=== PATIENT | male | born 1975 | race American Indian/Alaskan Native ===

== ENCOUNTER 2017-12-08 21:21 | Emergency (ER) | payer SELFPAY ==
[2017-12-08] MEDS ORDERED: ASPIRIN PO ONE (22:25)
--- NOTE | 2017-12-08 23:50 | XRay Report ---
FINAL REPORT PROCEDURE: XR CHEST ROUTINE 2V TECHNIQUE: PA and lateral chest radiographs were obtained. CPT 36615 HISTORY: brodie COMPARISON: No prior studies are available for comparison. FINDINGS: Heart: Normal. Mediastinum/Vessels: Normal. Lungs/Pleural space: Normal. Bony thorax: No acute osseous abnormality. Other: IMPRESSION: Normal examination.
[2017-12-09 00:10] LABS: Bilirubin,Urine NEG (Negative); Blood,Urine NEG (Negative); Color,Urine Yellow (Yellow); Protein,Urine <15 mg/dL mg/dL (Negative); Urobilinogen,Urine < 2.0 mg/dL (<2.0)
[2017-12-09 00:31] LABS: Basophils # (Auto) 0.1 K/mm3 (0.0-0.1); Eosinophils # (Auto) 0.1 K/mm3 (0.0-0.4); Eosinophils % (Auto) 1.6 % (0.0-4.3); Hematocrit 44.3 % (35.5-45.6); Hemoglobin 14.9 gm/dl (11.8-15.2); Lymphocytes # (Auto) 1.9 K/mm3 (1.2-5.4); Lymphocytes % (Auto) 23.8 % (13.4-35.0); Mean Corpuscular HGB Conc 34 % (32-34); Mean Corpuscular Hemoglobin 35 pg (28-32); Mean Corpuscular Volume 105 fl (84-94); Monocytes # (Auto) 0.8 K/mm3 (0.0-0.8); Monocytes % (Auto) 9.9 % (0.0-7.3); Platelet Count 328 K/mm3 (140-440); Red Blood Count 4.22 M/mm3 (3.65-5.03); Red Cell Distribution Width 13.9 % (13.2-15.2)
[2017-12-09 00:53] LABS: BUN/Creatinine Ratio 10; Blood Urea Nitrogen 9 mg/dL (9-20); Calcium 9.2 mg/dL (8.4-10.2); Hemolysis Index 1
[2017-12-09 01:35] VITALS: BP 128/82
--- NOTE | 2017-12-09 01:40 | Emergency Department Report ---
ED Chest Pain HPI - General Chief Complaint: Chest Pain Stated Complaint: CHEST PAIN Time Seen by Provider: 12/09/17 01:28 Source: patient Mode of arrival: Ambulatory Limitations: No Limitations - History of Present Illness Initial Comments: Patient is 42 years old male with no significant past medical history presented to the ER with left-sided chest pain, sharp, does not radiate, increased wheeze movement and taking a deep breath. Patient stated that he do a lot of lifting at his job. He denied any cough, fever, nausea or vomiting or shortness of breath. MD Complaint: chest pain -: Last night Onset: during rest Pain Location: left chest Pain Radiation: none Severity: moderate Severity scale (0 -10): 8 Quality: sharp Consistency: intermittent Improves With: remaining still Worsens With: movement - Related Data Previous Rx's Medication Instructions Recorded Last Taken Type Cyclobenzaprine [Flexeril] 5 mg PO TID PRN #30 tablet 12/09/17 Unknown Rx Naproxen [Naprosyn] 500 mg PO BID #14 tablet 12/09/17 Unknown Rx Allergies Allergy/AdvReac Type Severity Reaction Status Date / Time No Known Allergies Allergy Verified 12/09/17 01:29 Heart Score - HEART Score History: Slightly suspicious EKG: Non-specific Age: < 45 Risk factors: No known risk factors Troponin: < normal limit HEART Score: 1 - Critical Actions Critical Actions: 0-3 pts:0.9-1.7%risk of adverse cardiac event.Candidate for discharge ED Review of Systems ROS: Stated complaint: CHEST PAIN Other details as noted in HPI Comment: All other systems reviewed and negative Constitutional: denies: chills, fever Respiratory: denies: cough, orthopnea, shortness of breath, SOB with exertion Cardiovascular: chest pain. denies: palpitations, dyspnea on exertion, orthopnea Gastrointestinal: denies: abdominal pain, nausea, vomiting, diarrhea, constipation, hematemesis, hematochezia Musculoskeletal: denies: back pain Neurological: denies: headache, weakness, numbness, paresthesias ED Past Medical Hx - Past Medical History Previous Medical History?: No - Surgical History Past Surgical History?: No - Social History Smoking Status: Current Every Day Smoker Substance Use Type: Alcohol, Marijuana - Medications Home Medications: Home Medications Medication Instructions Recorded Confirmed Last Taken Type Cyclobenzaprine [Flexeril] 5 mg PO TID PRN #30 tablet 12/09/17 Unknown Rx Naproxen [Naprosyn] 500 mg PO BID #14 tablet 12/09/17 Unknown Rx ED Physical Exam - General Limitations: No Limitations General appearance: alert, in no apparent distress - Head Head exam: Present: atraumatic, normocephalic - Eye Eye exam: Present: normal appearance, PERRL - ENT ENT exam: Present: normal exam, normal orophraynx, mucous membranes moist - Neck Neck exam: Present: normal inspection, full ROM. Absent: tenderness, meningismus - Respiratory Respiratory exam: Present: normal lung sounds bilaterally, chest wall tenderness. Absent: respiratory distress, wheezes, rales, rhonchi, accessory muscle use, decreased breath sounds, prolonged expiratory - Cardiovascular Cardiovascular Exam: Present: regular rate, normal rhythm, normal heart sounds - GI/Abdominal GI/Abdominal exam: Present: soft, normal bowel sounds. Absent: distended, tenderness, guarding, rebound, rigid, mass, bruit, pulsatile mass - Extremities Exam Extremities exam: Present: normal inspection, full ROM, normal capillary refill - Back Exam Back exam: Present: normal inspection. Absent: full ROM, tenderness, CVA tenderness (R), CVA tenderness (L), muscle spasm, paraspinal tenderness, vertebral tenderness - Neurological Exam Neurological exam: Present: alert, oriented X3, CN II-XII intact, normal gait - Skin Skin exam: Present: warm, intact, normal color ED Course Vital Signs 12/08/17 12/09/17 12/09/17 22:22 01:34 01:35 Temperature 98.3 F 98.7 F Pulse Rate 79 71 Respiratory 18 18 18 Rate Blood Pressure 123/89 Blood Pressure 128/82 [Left] O2 Sat by Pulse 97 100 100 Oximetry ED Medical Decision Making - Lab Data Result diagrams: 12/08/17 23:38 12/08/17 23:38 - EKG Data -: EKG Interpreted by [place] EKG shows normal: sinus rhythm Rate: normal - EKG Data Interpretation: no acute changes - Radiology Data Radiology results: report reviewed Chest x-ray unremarkable. Critical care attestation.: If time is entered above; I have spent that time in minutes in the direct care of this critically ill patient, excluding procedure time. ED Disposition Clinical Impression: Chest pain, Costochondritis, acute Disposition: -01 TO HOME OR SELFCARE Is pt being admited?: No Condition: Stable Instructions: Chest Pain (ED), Costochondritis (ED) Prescriptions: Cyclobenzaprine [Flexeril] 5 mg PO TID PRN #30 tablet PRN Reason: Muscle Spasm Naproxen [Naprosyn] 500 mg PO BID #14 tablet Referrals: PRIMARY CARE, [Primary Care Provider] - 3-5 Days Forms: Work/School Release Form(ED)
== END 2017-12-09 03:30 | disposition home or self-care (01) ==
LOC: ED 21:21
DX: M94.0 Chondrocostal junction syndrome [Tietze] (principal); F17.200 Nicotine dependence, unspecified, uncomplicated; F12.10 Cannabis abuse, uncomplicated
CPT/HCPCS: 36415; 71046; 80048; 81001; 84484; 85025; 93005; 93010; 99284

== ENCOUNTER 2019-08-23 13:41 | Emergency (ER) | payer SELFPAY ==
[2019-08-23 14:14] VITALS: BP 128/84
--- NOTE | 2019-08-23 14:26 | Emergency Department Report ---
ED Back Pain/Injury HPI - General Chief Complaint: Back Pain/Injury Stated Complaint: BACK PAIN Time Seen by Provider: 08/23/19 14:21 Source: patient Limitations: No Limitations - History of Present Illness Initial Comments: This is a 44-year-old male nontoxic, well nourished in appearance, no acute signs of distress presents to the ED with c/o of acute on chronic lower back pa in. Patient stated that the past 2 days she was moving and developed this pain. Patient denies any trauma. Denies any bladder or bowel instability. Patient denies any urinary symptoms. Denies any fever, chills, nausea, vomiting, headache, stiff neck, chest pain or shortness of breath. Patient denies any numbness or tingling. Denies any allergies. MD Complaint: back pain -: days(s) Similar Symptoms Previously: Yes Place: work Radiation: none Severity: mild Severity scale (0 -10): 8 Quality: aching Consistency: intermittent Improves With: immobilization, sitting upright Worsens With: movement, walking Context: while lifting, turning/twisting Associated Symptoms: denies other symptoms. denies: confusion, weakness, chest pain, numbness, difficulty walking, cough, difficulty urinating, diaphoresis, incontinence, fever/chills, constipation, headaches, abdominal pain, loss of appetite, malaise, nausea/vomiting, rash, seizure, shortness of breath, syncope - Related Data Previous Rx's Medication Instructions Recorded Last Taken Type Cyclobenzaprine [Flexeril] 5 mg PO TID PRN #30 tablet 12/09/17 Unknown Rx Naproxen [Naprosyn] 500 mg PO BID #14 tablet 12/09/17 Unknown Rx Cyclobenzaprine [Flexeril] 10 mg PO QHS PRN #10 tablet 08/23/19 Unknown Rx Naproxen 500 mg PO Q8H PRN #20 tablet 08/23/19 Unknown Rx Allergies Allergy/AdvReac Type Severity Reaction Status Date / Time No Known Allergies Allergy Verified 12/09/17 01:29 ED Review of Systems ROS: Stated complaint: BACK PAIN Other details as noted in HPI Constitutional: denies: chills, fever Eyes: denies: eye pain, eye discharge, vision change ENT: denies: ear pain, throat pain Respiratory: denies: cough, shortness of breath, wheezing Cardiovascular: denies: chest pain, palpitations Endocrine: no symptoms reported Gastrointestinal: denies: abdominal pain, nausea, diarrhea Genitourinary: denies: urgency, dysuria Musculoskeletal: back pain. denies: joint swelling, arthralgia Skin: denies: rash, lesions Neurological: denies: headache, weakness, paresthesias Psychiatric: denies: anxiety, depression Hematological/Lymphatic: denies: easy bleeding, easy bruising ED Past Medical Hx - Past Medical History Previous Medical History?: No - Surgical History Past Surgical History?: No - Social History Smoking Status: Current Every Day Smoker Substance Use Type: Alcohol, Marijuana - Medications Home Medications: Home Medications Medication Instructions Recorded Confirmed Last Taken Type Cyclobenzaprine [Flexeril] 5 mg PO TID PRN #30 tablet 12/09/17 Unknown Rx Naproxen [Naprosyn] 500 mg PO BID #14 tablet 12/09/17 Unknown Rx Cyclobenzaprine [Flexeril] 10 mg PO QHS PRN #10 tablet 08/23/19 Unknown Rx Naproxen 500 mg PO Q8H PRN #20 tablet 08/23/19 Unknown Rx ED Physical Exam - General Limitations: No Limitations General appearance: alert, in no apparent distress - Head Head exam: Present: atraumatic, normocephalic - Neck Neck exam: Present: normal inspection, full ROM. Absent: tenderness, meningismus, lymphadenopathy - Extremities Exam Extremities exam: Present: normal inspection, full ROM, normal capillary refill. Absent: tenderness - Back Exam Back exam: Present: normal inspection, full ROM, paraspinal tenderness (right lower back pain). Absent: tenderness, CVA tenderness (R), CVA tenderness (L), muscle spasm, vertebral tenderness, rash noted - Expanded Back Exam Expanded Back exam: Absent: saddle anesthesia Back exam: Negative Straight Leg Raising: Left, Right - Neurological Exam Neurological exam: Present: alert, oriented X3, normal gait - Psychiatric Psychiatric exam: Present: normal affect, normal mood - Skin Skin exam: Present: warm, dry, intact, normal color. Absent: rash ED Course Vital Signs 08/23/19 14:13 Temperature 97.7 F Pulse Rate 97 H Respiratory 18 Rate Blood Pressure 128/84 O2 Sat by Pulse 97 Oximetry - Reevaluation(s) Reevaluation #1: 08/23/19 14:24 Patient is speaking in full sentences with no signs of distress noted. ED Medical Decision Making - Medical Decision Making Patient was instructed to Follow-up with a primary care doctor in 3-5 days or if symptoms worsen and continue return to emergency room as soon as possible. At time of discharge, the patient does not seem toxic or ill in appearance. No acute signs of distress noted. Patient agrees to discharge treatment plan of care. No further questions noted by the patient. Critical care attestation.: If time is entered above; I have spent that time in minutes in the direct care of this critically ill patient, excluding procedure time. ED Disposition Clinical Impression: Chronic lower back pain Qualifiers: Back pain laterality: right Sciatica presence: without sciatica Qualified Code(s): M54.5 - Low back pain; G89.29 - Other chronic pain Low back strain Qualifiers: Encounter type: initial encounter Qualified Code(s): S39.012A - Strain of muscle, fascia and tendon of lower back, initial encounter Disposition: TO HOME OR SELFCARE Is pt being admited?: No Does the pt Need Aspirin: No Condition: Stable Instructions: Muscle Strain (ED), Low Back Strain (ED), Cyclobenzaprine (By mouth) Additional Instructions: Follow-up with a primary care doctor in 3-5 days or if symptoms worsen and c ontinue return to emergency room as soon as possible. Prescriptions: Cyclobenzaprine [Flexeril] 10 mg PO QHS PRN #10 tablet PRN Reason: Muscle Spasm Naproxen 500 mg PO Q8H PRN #20 tablet PRN Reason: Pain, Moderate (4-6) Referrals: PRIMARY MD MARYCRUZ [Referring] - 3-5 Days JLUIS SWANSON MD [Staff Physician] - 3-5 Days [facility] [Outside] - 3-5 Days [facility] [Outside] - 3-5 Days Forms: Work/School Release Form(ED)
== END 2019-08-23 14:32 | disposition home or self-care (01) ==
LOC: ED 13:41
DX: S39.012A Strain of muscle, fascia and tendon of lower back, initial encounter (principal); F17.200 Nicotine dependence, unspecified, uncomplicated; F12.10 Cannabis abuse, uncomplicated; X58.XXXA Exposure to other specified factors, initial encounter; Y93.89 Activity, other specified; Y92.89 Other specified places as the place of occurrence of the external cause; Y99.8 Other external cause status
CPT/HCPCS: 99282

== ENCOUNTER 2019-09-03 16:58 | Emergency (ER) | payer SELFPAY ==
[2019-09-03 17:08] VITALS: BP 108/77
--- NOTE | 2019-09-03 18:40 | Emergency Department Report ---
Chief Complaint: Back Pain/Injury Stated Complaint: BACK PAIN Time Seen by Provider: 09/03/19 18:38 - HPI History of Present Illness: pt presents for chronic right lower back pain states it radiates to the right lower back states he scheduled an "MRI for September 10" "states he has a pulled muscle" no PCP or orthopedic doctor - Exam Vital Signs: Vital Signs 09/03/19 17:07 Temperature 98.3 F Pulse Rate 144 H Respiratory 18 Rate Blood Pressure 108/77 [Left] O2 Sat by Pulse 100 Oximetry MSE screening note: Focused history and physical exam performed. Due to findings the following was ordered: ED Disposition for MSE Condition: Stable
--- NOTE | 2019-09-03 18:43 | Event Note ---
ED Screening Note ED Screening Note: pt presents for chronic right lower back pain states it radiates to the right lower back states he has an appointment with a primary care doctor on September 10 "states he has a pulled muscle" no PCP or orthopedic doctor HR Is elevated in triage This initial assessment/diagnostic orders/clinical plan/treatment(s) is/are subject to change based on patients health status, clinical progression and re- assessment by fellow clinical providers in the ED. Further treatment and workup at subsequent clinical providers discretion. Patient/guardian urged not to elope from the ED as their condition may be serious if not clinically assessed and managed.
== END 2019-09-03 19:30 | disposition left against medical advice (07) ==
LOC: ED 16:58
DX: M54.89 Other dorsalgia (principal); Z53.21 Procedure and treatment not carried out due to patient leaving prior to being seen by health care provider

== ENCOUNTER 2019-09-12 07:47 | Emergency (ER) | payer SELFPAY ==
[2019-09-12] MEDS ORDERED: IPRATROPIUM 0.02% NEBU 2.5 ML IH ONE (08:20)
[2019-09-12] MEDS ORDERED: predniSONE 20 MG TAB PO ONE (08:20)
[2019-09-12] MEDS ORDERED: LEVALBUTEROL 0.63 MG/3 ML NEBU IH ONE (08:20)
--- NOTE | 2019-09-12 08:20 | Emergency Department Report ---
Minor Respiratory - HPI Chief Complaint: Upper Respiratory Infection Stated Complaint: COLD/BACK PAIN Time Seen by Provider: 09/12/19 08:16 Duration: 2 Days Pain Location: Other (date and body ache /10 and achy. No medication taken. Nothing makes it better and nothing makes it worse.) Severity: mild Minor Respiratory: Yes Rhinorrhea (nasal congestion), Yes Able to Tolerate Fluids (that not solid), Yes Cough (congested cough and wheeze since), Yes Shortness of Breath (shortness of breath or cough and), Yes Fever, No Sore Throat, No Ear Pain, No Sick Contacts, No Hemoptysis, No Chest Pain Other History: This is a 44-year-old male he reports that he has been having fever chills, nasal congestion and headache, decreased appetite since Tuesday. He has not taken anything [id number]. Pain is for the 10 to head and generalized body ache. Headache is located frontally on and off, feels achy, denies any nausea, vomiting, dizziness and blurred vision or any head injury. Denies any chest pain. Reports that he is feeling really bad. ED Review of Systems ROS: Stated complaint: COLD/BACK PAIN Other details as noted in HPI Constitutional: chills, fever, weakness Eyes: denies: eye discharge Respiratory: cough, shortness of breath (with coughing), wheezing Cardiovascular: denies: chest pain, palpitations, edema, syncope Gastrointestinal: denies: abdominal pain, nausea, vomiting Genitourinary: denies: dysuria, hematuria Musculoskeletal: myalgia. denies: back pain, joint swelling, arthralgia Skin: denies: rash Neurological: headache. denies: numbness, paresthesias, abnormal gait, vertigo ED Past Medical Hx - Past Medical History Previous Medical History?: Yes Additional medical history: BACK CHRONIC - Surgical History Past Surgical History?: No - Family History Family history: hypertension - Social History Smoking Status: Current Every Day Smoker Substance Use Type: Alcohol - Medications Home Medications: Home Medications Medication Instructions Recorded Confirmed Last Taken Type Cyclobenzaprine [Flexeril] 5 mg PO TID PRN #30 tablet 12/09/17 Unknown Rx Naproxen [Naprosyn] 500 mg PO BID #14 tablet 12/09/17 Unknown Rx Cyclobenzaprine [Flexeril] 10 mg PO QHS PRN #10 tablet 08/23/19 Unknown Rx Naproxen 500 mg PO Q8H PRN #20 tablet 08/23/19 Unknown Rx ALBUTEROL Inhaler (OR & NICU) 2 puff IH Q6H PRN #1 inhalation 09/12/19 Unknown Rx [ProAir HFA Inhaler] Azithromycin [Zithromax Z-RAJINDER] 250 mg PO DAILY 5 Days #1 pkg 09/12/19 Unknown Rx Cetirizine HCl [ZyrTEC] 10 mg PO QAM 14 Days #14 capsule 09/12/19 Unknown Rx Ibuprofen [Motrin] 800 mg PO Q8HR PRN #12 tablet 09/12/19 Unknown Rx Minor Respiratory Exam - Exam General: Vital signs noted. No distress. Alert and acting appropriately. This is a 44-year-old male patient well-nourished well-developed nontoxic in appearance. HEENT: Yes Moist Mucous Membranes (uvula midline and oral airways patent), Yes Rhinorrhea (pale and boggy mucosa), No Pharyngeal Erythema, No Pharyngeal Exudates, No Conjuctival Injection, No Frontal Tenderness, No Maxillary Tenderness Ear: Neither TM Bulge (yesenia middle ear effusion), Neither TM Erythema, Neither EAC Pain, Neither EAC Discharge Neck: Yes Supple (Full ROM), No Adenopathy Lungs: Yes Wheezes (upper lung vaughn), Yes Ronchi (cleared with coughing), Yes Cough (congested), No Stridor, No Labored Respirations, No Retractions, No Use of Accessory Muscles, No Other Abnormal Lung Sounds Heart: Yes Regular (tachycardia), No Murmur Abdomen: Yes Normal Bowel Sounds (all quadrants), No Tenderness (all quadrants), No Peritoneal Signs Skin: No Rash, No Edema Neurologic: Alert and oriented, no deficits. Musculoskeletal: Unremarkable. No clubbing, Cyanosis or edema. +2 pulses in all extremities ED Course Vital Signs 09/12/19 07:55 Temperature 99.2 F Pulse Rate 105 H Respiratory 16 Rate Blood Pressure 126/77 [Left] O2 Sat by Pulse 95 Oximetry Vital Signs 09/12/19 09/12/19 07:55 10:47 Temperature 99.2 F 99.0 F Pulse Rate 105 H 81 Respiratory 16 18 Rate Blood Pressure 126/77 121/80 [Left] O2 Sat by Pulse 95 97 Oximetry - Reevaluation(s) Reevaluation #1: 09/12/19 09:24 Patient received Xopenex 1.26 mg and Ativan 1 mg nebulizer treatment. Deltasone 60 mg by mouth x-ray chest 2 view shows pneumonia. Patient for lab work. He is stable and in no acute distress lung sounds better. Patient to receive IV Rocephin and will be discharged home on IV medication. Toradol for Reevaluation #2: 09/12/19 10:58 On reevaluation of lung lung sounds is better. Oxygenation is better. The signs is stable and patient is afebrile. Patient has pneumonia and given Rocephin 1 g IV without any adverse reaction. He said he is feeling a lot better. No pain at present ED Medical Decision Making - Lab Data Result diagrams: 09/12/19 09:46 Labs 09/12/19 09:46 Sodium 135 L Potassium 3.9 Chloride 98.7 Carbon Dioxide 17 L Anion Gap 23 BUN 13 Creatinine 0.9 Estimated GFR > 60 BUN/Creatinine Ratio 14 Glucose 104 H Calcium 9.3 - Radiology Data Radiology results: report reviewed View chest x-ray dictated by radiologist and report reviewed by myself. Please see details below Findings [facility] [address] [place] [address] XRay Report Signed Patient: JASE TAFOYA MR#: [id number] 1 : 1975 Acct:[id number] Age/Sex: 44 / M ADM Date: 09/12/19 Loc: ED Attending Dr: Ordering Physician: DAISY BECERRIL Date of Service: 09/12/19 Procedure(s): XR chest routine 2V Accession Number(s): [id number] cc: DAISY BECERRIL Fluoro Time In Minutes: CHEST 2 VIEWS INDICATION: cough, fever. COMPARISON: 12/08/2017 FINDINGS: Support devices: None. Heart: Within normal limits. Lungs/pleura: Mild underlying emphysematous changes are suspected. Subtle early infiltrate is suspected in the left upper lobe. The left lower lobe and right lung are adequately aerated. No pleural effusion or pneumothorax. Additional findings: None. IMPRESSION: Early left upper lobe pneumonia is suspected. Mild emphysematous changes. Signer Name: Josue Collins Jr, MD Signed: 09/12/2019 8:42 AM Workstation Name: [id number] Transcribed By: TTR Dictated By: JOSUE COLLINS JR, MD Electronically Authenticated By: JOSUE COLLINS JR, MD Signed Date/Time: 09/12/19841 DD/ 0 TD/TT: - Medical Decision Making IMPRESSION: Early left upper lobe pneumonia is suspected. Mild emphysematous changes. - Differential Diagnosis PNA, bronchitis, sinusitis, URI with cough and congestion Critical care attestation.: If time is entered above; I have spent that time in minutes in the direct care of this critically ill patient, excluding procedure time. ED Disposition Clinical Impression: Cough in adult, Fever and chills Left upper lobe pneumonia Qualifiers: Pneumonia type: due to unspecified organism Qualified Code(s): J18.9 - Pneumonia, unspecified organism Community acquired pneumonia Qualifiers: Laterality: left Lung location: upper lobe of lung Qualified Code(s): J18.9 - Pneumonia, unspecified organism Disposition: - TO HOME OR SELFCARE Is pt being admited?: No Does the pt Need Aspirin: No Condition: Stable Instructions: Community-acquired Pneumonia (ED), Bacterial Pneumonia (ED), Acute Cough (ED) Additional Instructions: Please follow-up with primary care physician and if he do not have a primary care physician follow-up at this outside [facility] for follow-up pneumonia within 2 days. IF condition worsens, return to the emergency room. Take discharge instructions on pneumonia Take medication as prescribed Rest and increase her fluid intake Pls ensure sure that you take all your antibiotic as prescribed. Prescriptions: Ibuprofen [Motrin] 800 mg PO Q8HR PRN #12 tablet PRN Reason: pain ALBUTEROL Inhaler (OR & NICU) [ProAir HFA Inhaler] 2 puff IH Q6H PRN #1 inhalation PRN Reason: Shortness Of Breath Azithromycin [Zithromax Z-RAJINDER] 250 mg PO DAILY 5 Days #1 pkg Cetirizine HCl [ZyrTEC] 10 mg PO QAM 14 Days #14 capsule Referrals: TERRY MADDOX MD [Primary Care Provider] - 2-3 Days Forms: Work/School Release Form(ED)
--- NOTE | 2019-09-12 08:46 | XRay Report ---
CHEST 2 VIEWS INDICATION: cough, fever. COMPARISON: 12/08/2017 FINDINGS: Support devices: None. Heart: Within normal limits. Lungs/pleura: Mild underlying emphysematous changes are suspected. Subtle early infiltrate is suspec olivia in the left upper lobe. The left lower lobe and right lung are adequately aerated. No pleural eff usion or pneumothorax. Additional findings: None. IMPRESSION: Early left upper lobe pneumonia is suspected. Mild emphysematous changes. Signer Name: Josue Collins Jr, MD Signed: 09/12/2019 8:42 AM Workstation Name: [id number]
[2019-09-12] MEDS ORDERED: KETOROLAC 60 MG/2 ML INJ IVP ONE (09:13)
[2019-09-12] MEDS ORDERED: cefTRIAXone/NS 2 GM/100 ML 2 GM/100 ML BAG IV ONE ×2 (09:13→09:52)
[2019-09-12] MEDS ORDERED: cefTRIAXone/NS 1 GM/50 ML 1 GM/50 ML BAG IV ONE (09:41)
[2019-09-12 10:27] LABS: BUN/Creatinine Ratio 14; Blood Urea Nitrogen 13 mg/dL (9-20)
[2019-09-12 10:35] LABS: Calcium 9.3 mg/dL (8.4-10.2); Hemolysis Index 11
[2019-09-12 10:48] VITALS: BP 121/80
== END 2019-09-12 11:42 | disposition home or self-care (01) ==
LOC: ED 07:47
DX: J18.1 Lobar pneumonia, unspecified organism (principal); J18.9 Pneumonia, unspecified organism; F17.200 Nicotine dependence, unspecified, uncomplicated; Z79.1 Long term (current) use of non-steroidal anti-inflammatories (NSAID); Z79.899 Other long term (current) drug therapy
CPT/HCPCS: 36415; 71046; 80048; 94640; 96365; 96366; 96375; 99284; J0696; J1885; J7512

== ENCOUNTER 2019-09-17 15:35 | Emergency (ER) | payer SELFPAY ==
[2019-09-17 16:15] VITALS: BP 119/84
--- NOTE | 2019-09-17 16:21 | Emergency Department Report ---
Chief Complaint: Upper Respiratory Infection Stated Complaint: POSS PNEUMONIA Time Seen by Provider: 09/17/19 16:13 - HPI History of Present Illness: This is a 44-year-old male nontoxic, well in appearance with no signs of distress presents to the ED for work excuse note. Patient was seen for PNA and has been feeling better but is wanting a work excuse for light duty. Patient stated he is asymptotic. Patient stated that his symptoms are better and has been taking antibiotics. Denies any cough or URI symptoms. Patient denies any urinary symptoms. Patient denies any fever, chills, headache, nausea, vomiting, chest pain or shortness of breathe. denies any other symptoms or complaints. Denies any allergies or PMH. - Exam Vital Signs: Vital Signs 09/17/19 16:14 Temperature 98.2 F Pulse Rate 105 H Respiratory 18 Rate Blood Pressure 119/84 O2 Sat by Pulse 97 Oximetry Physical Exam: No cough. No body aches. no respitoary symptoms. normal exam. Normal lung sounds. MSE screening note: Focused history and physical exam performed. Due to findings the following was ordered: ED Medical Decision Making - Medical Decision Making This is a 44-year-old male that presents with nonmedical emergency complaint. Patient is just requested for a work excuse. Patient denies any symptoms. I gave patient many different referrals to follow-up. Patient was instructed to Follow-up with a primary care doctor in 3-5 days or if symptoms worsen and continue return to emergency room as soon as possible. At time of discharge, the patient does not seem toxic or ill in appearance. No acute signs of distress noted. Patient agrees to discharge treatment plan of care. No further questions noted by the patient. ED Disposition for MSE Clinical Impression: Encounter to obtain excuse from work Disposition: Z-07 MED SCREENING EXAM-LEFT Is pt being admited?: No Does the pt Need Aspirin: No Condition: Stable Additional Instructions: Follow-up with a primary care doctor in 3-5 days or if symptoms worsen and continue return to emergency room as soon as possible. Referrals: LOKESH JOEL MD [Referring] - 3-5 Days MANNY BALLESTEROS MD [Staff Physician] - 3-5 Days [facility] [Outside] - 3-5 Days
== END 2019-09-17 16:54 | disposition left against medical advice (07) ==
LOC: ED 15:35
DX: Z00.00 Encounter for general adult medical examination without abnormal findings (principal)